=== PATIENT | female | born 1975 | race Hispanic/Latino ===

== ENCOUNTER 2025-06-05 07:42 | Outpatient (CLI) | payer OTHER | END 2025-06-05 07:43 | disposition home or self-care (01) | LOC: BICMAMMO 07:42 | PROVIDERS: ATTEND Nurse Practitioner Family | DX: Z12.31 Encounter for screening mammogram for malignant neoplasm of breast (principal); N64.89 Other specified disorders of breast; Z80.3 Family history of malignant neoplasm of breast | CPT/HCPCS: 77063; 77067 ==